=== PATIENT | female | born 1980 | race Caucasian/White ===

== ENCOUNTER 2018-06-01 12:36 | Observation (INO) | payer OTHER ==
[2018-06-01] MEDS ORDERED: LR 1,000 ML IV ONE (12:50)
[2018-06-01] MEDS ORDERED: ceFAZolin 2 GM/DEXTROSE 100 ML IV ONE (13:17)
--- NOTE | 2018-06-01 13:19 | PDHPUP ---
History & Physical Update H&P update statement: This history and physical update is based on an assessment of the patient which was completed after admission or registration (within 24 hours), but prior to the surgery/procedure. H&P update: H&P reviewed & patient examined, no change in patient's condition since H&P completed
[2018-06-01] MEDS ORDERED: LIDO/EPI 2%** Not for Epidural 20 ML MDV ONE (13:23)
[2018-06-01] MEDS ORDERED: LIDOCAINE 1% 300 MG/30 ML SDV ONE (13:23)
[2018-06-01] MEDS ORDERED: EPINEPHrine 1 MG/ML INJ ONE (13:24)
[2018-06-01] MEDS ORDERED: MIDAZOLAM 2 MG/2 ML VIAL IVP ONE (14:02)
--- NOTE | 2018-06-01 14:05 | PDANEPAE ---
ANE History of Present Illness Thyroidectomy ANE Past Medical History - Cardiovascular History Hx Hypertension: No Hx Arrhythmias: No Hx Chest Pain: No Hx Coronary Artery / Peripheral Vascular Disease: No Hx CHF / Valvular Disease: No Hx Palpitations: No - Pulmonary History Hx COPD: No Hx Asthma/Reactive Airway Disease: No Hx Recent Upper Respiratory Infection: No Hx Oxygen in Use at Home: No Hx Sleep Apnea: No Sleep Apnea Screening Result - Last Documented: Negative - Neurologic History Hx Cerebrovascular Accident: No Hx Seizures: No Hx Dementia: No - Endocrine History Hx Diabetes: No Hyperthyroid: No Endocrine History Comment: Graves disease - Renal History Hx Renal Disorders: No - Liver History Hx Hepatic Disorders: No - Neurological & Psychiatric Hx Hx Neurological and Psychiatric Disorders: No - Cancer History Hx Cancer: No - Congenital Disorder History Hx Congenital Disorders: No - GI History Hx Gastrointestinal Disorders: No - Other Health History Other Health History: none - Chronic Pain History Chronic Pain: No - Surgical History Prior Surgeries: left knee surgery in high school ANE Review of Systems Review of Systems: - Exercise capacity METS (RN): 5 METS ANE Patient History - Allergies Allergies/Adverse Reactions: methimazole Allergy (Verified 05/14/18 11:51) Rash - Home Medications Home Medications: Ibuprofen [Motrin (*)] 200 mg PO DAILY PRN 05/14/18 [Last Taken 05/25/18] Propylthiouracil [Propylthiouracil 50mg (*)] 200 mg PO QID 05/14/18 [Last Taken 06/01/18] - NPO status NPO Status: no food or drink >8 hours NPO Since - Liquids (Date): 06/01/18 NPO Since - Liquids (Time): 05:00 NPO Since - Solids (Date): 06/01/18 NPO Since - Solids (Time): 04:00 - Anes Hx Anes Hx: no prior problems - Smoking Hx Smoking Status: Former smoker Marijuana use: No - Alcohol Use Alcohol Use: Rarely - Family Anes Hx Family Anes Hx: none Family Hx Anesthesia Complications: none ANE Labs/Vital Signs - Vital Signs Blood Pressure: 151/93 Heart Rate: 76 Respiratory Rate: 14 O2 Sat (%): 98 Height: 167.64 cm Weight: 63.503 kg ANE Physical Exam - Airway Neck exam: FROM Mallampati Score: Class 1 Mouth exam: normal dental/mouth exam - Pulmonary Pulmonary: no respiratory distress - Cardiovascular Cardiovascular: regular rate and rhythym, no murmur, rub, or gallop - ASA Status ASA Status: II ANE Anesthesia Plan Anesthesia Plan: general endotracheal anesthesia
[2018-06-01] MEDS ORDERED: ROCURONIUM 50 MG/5 ML VIAL ONE (14:15)
[2018-06-01] MEDS ORDERED: fentaNYL 250 MCG/5 ML INJ ONE (14:15)
[2018-06-01] MEDS ORDERED: SCOPOLAMINE HYDROBROMIDE 1 MG/3 DAYS PATCH TD SCH (14:15)
[2018-06-01] MEDS ORDERED: ONDANSETRON 4 MG/2 ML VIAL ONE (14:15)
[2018-06-01] MEDS ORDERED: PROPOFOL/EMULSION 500 MG/50 ML BOTTLE IV ONE ×3 (14:15→16:00)
[2018-06-01] MEDS ORDERED: GLYCOPYRROLATE 0.2 MG/1 ML VIAL ONE (14:15)
[2018-06-01] MEDS ORDERED: DEXAMETHASONE 4 MG/ML VIAL ONE ×3 (14:15→14:19)
[2018-06-01] MEDS ORDERED: fentaNYL 100 MCG/2 ML INJ ONE ×4 (15:00→18:14)
[2018-06-01] MEDS ORDERED: ESMOLOL HCL 100 MG/10 ML VIAL IV ONE (15:02)
[2018-06-01] MEDS ORDERED: HYDROmorphONE/DILAUDID 2 MG/ML INJ IVP PRN (17:00)
[2018-06-01] MEDS ORDERED: NALOXONE HCL 0.4 MG/ML INJ IVP PRN (17:00)
[2018-06-01] MEDS ORDERED: LABETALOL HCL 5 MG/ML 20 ML MDV IVP PRN ×2 (17:00→18:14)
[2018-06-01] MEDS ORDERED: DIAZEPAM 5 MG/ML 1 ML SYR IVP PRN (17:00)
--- NOTE | 2018-06-01 17:53 | POSTOPPROG ---
Post Op Note Date of Operation: 06/01/18 Surgeon: Christy Flores [employer] Operator Helper: Jefe Lucas MD Anesthesiologist: Mahogany Brar MD Anesthesia: GET(General Endotracheal) Pre-op Diagnosis: Grave's dz Post-op Diagnosis: same Procedure: total thyroidectomy, NIMs monitoring Findings: hypervascular, enlarged thyroid, both RLN stimulated postop, PTs found Inf/Abcess present in the surg proc area at time of surgery?: No Depth: Superfical (Skin SQ) EBL: 100-500 Complications: none apparent Drains: Frankie El
[2018-06-01] MEDS ORDERED: ONDANSETRON 4 MG/2 ML VIAL IVP PRN (18:05)
[2018-06-01] MEDS ORDERED: ACETAMINOPHEN 325 MG TAB PO PRN (18:05)
[2018-06-01] MEDS ORDERED: HYDROmorphONE/DILAUDID 2 MG/ML INJ ONE (18:14)
[2018-06-01] MEDS ORDERED: D5W 1/2 NS W/ 20 KCl/L 1,000 ML IV SCH (18:15)
[2018-06-01] MEDS: fentaNYL 100 MCG/2 ML INJ IVP PRN ×2 (18:17→18:33)
--- NOTE | 2018-06-01 18:42 | PDHOSCONS ---
History and Physical - Chief Complaint S/p Thyroidectomy - History of Present Illness Clare Toth is a 38 yo F with a hx of Grave's disease who is s/p thyroidectomy today. She was hypertensive and tachycardic according to surgeon during procedure today requiring IV B-Blockers. At time of examination, patient is complaining of neck pain. Her vitals appear stable and WNL. History Information - Allergies/Home Medication List Allergies/Adverse Reactions: methimazole Allergy (Verified 05/14/18 11:51) Rash Home Medications: Ibuprofen [Motrin (*)] 200 mg PO DAILY PRN 05/14/18 [Last Taken 05/25/18] Propylthiouracil [Propylthiouracil 50mg (*)] 200 mg PO QID 05/14/18 [Last Taken 06/01/18] I have personally reviewed and updated: family history, medical history, social history, surgical history - Past Medical History Additional medical history: Grave's ds - Surgical History Additional surgical history: Thyroidectomy today - Social History Smoking Status: Former smoker Alcohol Use: Rarely Review of Systems Review of Systems: ROS: 10pt was reviewed & negative except for what was stated in HPI & below Physical Exam Physical Exam: Temp Pulse Resp BP Pulse Ox 37.1 C 86 16 130/79 H 96 06/01/18 17:52 06/01/18 17:52 06/01/18 18:16 06/01/18 18:16 06/01/18 18:16 O2 (L/minute) 8 Constitutional: no apparent distress Eyes: PERRL Ears, Nose, Mouth, Throat: moist mucous membranes Cardiovascular: regular rate and rhythym Respiratory: no respiratory distress, clear to auscultation Gastrointestinal: soft, non-tender abdomen Genitourinary: no bladder fullness Skin: warm Neurologic: AAOx3 Psychiatric: interacting appropriately Lab Data & Imaging Review PTH Intact 53.9 pg/mL (10.8-79.4) 06/01/18 13:50 Calcium (PTH Intact) 8.9 mg/dL (8.5-10.4) 06/01/18 17:45 Creat (PTH Intact) 0.7 mg/dL (0.6-1.0) 06/01/18 17:45 Phosph (PTH Intact) 3.7 mg/dL (2.5-4.5) 06/01/18 17:45 Assessment & Plan Assessment: Grave's Disease s/p Thyroidectomy - TSH <0.015, T4 1.36, T3 5.23 on last set of labs from 05/26 - Patient was previously on PTU - Per surgeon patient required IV B-blockers in OR due to hypertension and tachycardia, concern for thyroid storm - Patient currently HD stable - If ongoing symptoms, consider reinitiation of B-fidencio, PTU, and steroids for treatment of possible thyroid storm Thank you for the consult. We will continue to follow patient throughout hospitalization.
[2018-06-01] MEDS: CALCIUM CARBONATE 500 MG TAB PO SCH (21:30)
[2018-06-01] MEDS: OXYCODONE/APAP 5/325 TAB PO PRN (21:30)
[2018-06-02] MEDS: OXYCODONE/APAP 5/325 TAB PO PRN ×3 (01:20→11:04)
[2018-06-02] MEDS ORDERED: LEVOTHYROXINE 112 MCG TAB PO SCH (06:00)
[2018-06-02 07:33] VITALS: BP 103/61
[2018-06-02] MEDS: CALCIUM CARBONATE 500 MG TAB PO SCH (09:39)
--- NOTE | 2018-06-02 12:40 | POSTANESTH ---
Post Anesthetic Evaluation Cardiovascular Status: Normal, Stable Respiratory Status: Normal, Stable Level of Consciousness/Mental Status: Other, See Comment Pain Control: Adequate, Prn Tx Ordered Nausea/Vomiting Control: Adequate, Prn Tx Ordered Complications Possibly Related to Anesthesia: None Noted (Pt Dced to home. Vitals normal.)
--- NOTE | 2018-06-04 13:38 | GOP ---
DATE OF OPERATION: 06/01/2018 SURGEON: Christy Flores MD ANESTHESIA: General. PREOPERATIVE DIAGNOSIS: 1. Graves disease. 2. Diffusely enlarged thyroid. POSTOPERATIVE DIAGNOSIS: 1. Graves disease. 2. Diffusely enlarged thyroid. PROCEDURE PERFORMED: 1. Total thyroidectomy. 2. Recurrent laryngeal nerve monitoring bilaterally using the Medtronic NIM endotracheal tube. FINDINGS: Patient was found to have a very enlarged vascular thyroid throughout. She did have some mild intraoperative thyrotoxicosis, which was controlled with beta blockers by Anesthesia. Both recurrent laryngeal nerves were found and were able to be stimulated postoperatively and 3 of the 4 parathyroids were found and left in-situ. ESTIMATED BLOOD LOSS: Minimal. INDICATIONS: The patient is a pleasant 38-year-old girl who has a history of Graves disease, which has been difficult to control medically. She has been on PTU for over a year with continued difficulty and issues. On preoperative lab testing, she had normal T3 and T4, but still had a low TSH. It was felt that she would benefit from the above procedure after consultation with her operations support specialist. DESCRIPTION OF PROCEDURE: The patient was first seen in the preoperative area, where informed consent was obtained. She was then brought back to the operating room. Anesthesia sedated and intubated her using the NIM tube. The bed was turned to 180 degrees. A shoulder roll was placed. The NIM tube was attached and confirmed to be tracking, which it was. A universal time-out protocol performed and once this was confirmed, a 5 cm incision marking was made in a skin crease in between the sternal notch and the cricoid, and then, I injected 1% lidocaine with 1:100,000 epinephrine into this area. Once this had sufficient time to act, the patient was then prepped and draped in a sterile fashion, and a 15-blade was used to make an incision through the skin and subcutaneous tissues, as well as the platysma, and then subplatysmal flaps were elevated. Of note, she was significantly inflamed and her tissue planes were not standard and somewhat more difficult to dissect, but once we had the flap elevated superiorly up to past the cricoid and inferiorly to the sternal notch, Weitlander retractors were used to hold this open, and at this point, the strap musculature was divided in the midline, and then, we first started on the right side. The strap musculature was released using sharp and blunt dissection off the underlying thyroid gland. Again as noted, the thyroid was significantly hypervascular and there were some very large vessels overlying the capsule. These were bipolar cauterized to decrease the chance of bleeding. Once the strap musculature was completely dissected off, a Miller retractor was used to elevate these laterally and a Casscoe was used to grasp the superior pole. Sharp and blunt dissection were used to dissect out the superior pole vessels, and then, a medium-sized clip was used to clip the artery and the vein proximally and the Harmonic scissors were used to clamp, ligate, and divide this distal to the clip. Once this had been released, we continued to release the thyroid from the surrounding tissues laterally and inferiorly, thereby clamp ligating and dividing the inferior pole vessels as well. As we were doing this, we found both the superior and inferior parathyroid and both of these were left in situ and attached to their vasculature. We then rotated the thyroid somewhat medially and superiorly, thereby elevating off the underlying tissues and then sharp dissection using the Burlisher was used to find the recurrent laryngeal nerve, which was able to be visualized along its course into its entry point of the cricoid thyroid joint. Once this had been visualized, it was kept in visualization and the Fleming ligament was released using sharp dissection, and then, the thyroid was elevated off the underlying trachea. The Harmonic was used to divide this, removing the right sided thyroid and the isthmus. This was sent off the field for permanent pathology. Any small bleeding vessels were cauterized using bipolar cautery. We then did the exact same thing on the left side, elevating the muscle and then releasing the superior pole first, then coming down to the inferior pole and then releasing it laterally. At least, the inferior parathyroid was found on this left side. It was kept in-situ. The recurrent laryngeal nerve was also found, able to be stimulated. The left-sided thyroid was completely removed and sent off the field for permanent pathology. Again, any small bleeding vessels were cauterized using bipolar cautery. A small amount of Surgicel was placed over the area of the nerve on both sides after the nerves were noted to be stimulated after removal of the thyroid. At this point, the wound was irrigated out copiously with normal saline, suctioned clear, and then, the Surgicel was placed. I then placed a 10-Spanish round ALMAS silicone drain exiting the skin laterally on the right. This was sutured to the skin using 2-0 silk tied to the drain. I then closed the strap musculature using 3-0 Vicryl in interrupted fashion. The subcutaneous tissues and platysma were closed with a 3-0 Vicryl in an interrupted fashion as well. The wound was then cleaned, and then, a 5-0 Monocryl in a running subcuticular fashion was used to close the skin. At this point, I then placed a little bit of Mastisol over either side of the skin edges, and then, this was covered with Steri-Strips. Once this was done, she had no significant active bleeding. The drain was holding suction. All instrument and pledget counts were correct. The patient was turned back over to Anesthesia where she was awakened and extubated and taken to PACU in stable condition. She tolerated the procedure well and was watched closely in PACU for continued resolution of her tachycardia and hypertension. COMPLICATIONS: None. /[id number]/MODL MTDD
== END 2018-06-02 14:21 | disposition home or self-care (01) ==
LOC: F3E 12:36
PROVIDERS: ADMIT Otolaryngology; ATTEND Otolaryngology
DX: E05.00 Thyrotoxicosis with diffuse goiter without thyrotoxic crisis or storm (principal); I97.3 Postprocedural hypertension; I97.89 Other postprocedural complications and disorders of the circulatory system, not elsewhere classified; R00.0 Tachycardia, unspecified; Z87.891 Personal history of nicotine dependence; Z23 Encounter for immunization
CPT/HCPCS: 60240; 90471; G0378; G0008; J0171; J0690; J1100; J1170; J2250; J2405; J2704; J3010